=== PATIENT | female | born 1965 | race African-American/Black ===

== ENCOUNTER 2016-12-14 17:11 | Inpatient (IN) | payer MEDICAID, OTHER ==
[~2016-12-14] VITALS: Ht 160 cm; Wt 92.1 kg
[2016-12-14] MEDS ORDERED: SODIUM CHLORIDE 0.9% 500 ML IVB ONE (18:33)
[2016-12-14] MEDS ORDERED: MORPHINE SULF INJ 2 MG/ML SYRINGE 1ML IV ONE (18:45)
[2016-12-14] MEDS ORDERED: ONDANSETRON HCL 4 MG/2 ML VIAL IV ONE (18:45)
[2016-12-14 20:12] LABS: Basophils # (auto) 0 uL; Basophils % (auto) 0.3 % (0.0-2.0); Eosinophils # (auto) 0.1 uL; Eosinophils % (auto) 0.4 % (0.0-7.0); Hematocrit 39.8 % (36.0-46.0); Hemoglobin 13.6 g/dL (12.2-16.2); Lymphocytes # (auto) 1.6 uL; Lymphocytes % (auto) 9.7 % (10.0-50.0); Mean Corpuscular Hemoglobin 30.3 pg (28.0-32.0); Mean Corpuscular Hgb Conc. 34.2 g/dL (32.0-36.0); Mean Corpuscular Volume 88.5 fL (80.0-100.0); Mean Platelet Volume 6.3 fL (6.9-10.8); Monocytes # (auto) 0.6 uL; Monocytes % (auto) 3.9 % (0.0-12.0); Neutrophils # (auto) 13.8 uL; Neutrophils % (auto) 85.7 % (37.0-80.0); Nucleated Red Blood Cells % 0.1 %; Platelet Count (auto) 170 10^3/uL (140-450); Red Cell Distribution Width 13.8 % (11.8-14.3); White Blood Cell 16.1 10^3/uL (4.4-10.8)
[2016-12-14 20:43] LABS: Magnesium 2.4 mg/dL (1.6-2.6)
[2016-12-14 20:45] LABS: Albumin 3.8 g/dL (3.4-5.0); BUN/Creatinine Ratio 13.8; Bilirubin, Total 0.5 mg/dL (0.2-1.0); Calcium 9.2 mg/dL (8.5-10.1); Total Protein 8.9 g/dL (6.4-8.2)
[2016-12-14] MEDS ORDERED: MORPHINE SULF INJ 2 MG/ML SYRINGE 1ML IV PRN (23:00)
[2016-12-14] MEDS ORDERED: cefTRIAXone 1GM/50ML D5W 50 ML IV ONE (23:00)
[2016-12-14] MEDS ORDERED: SODIUM CHLORIDE 0.9% 500 ML IV ONE (23:00)
[2016-12-14] MEDS ORDERED: PANTOPRAZOLE 40 MG/10 ML VIAL IV ONE (23:00)
[2016-12-14] MEDS ORDERED: metroNIDAZOLE 500MG/100ML 100 ML IV ONE (23:00)
[2016-12-14] MEDS ORDERED: DEXTROSE (50%) 50ML SYRG IV PRN (23:00)
[2016-12-14] MEDS ORDERED: NITROGLYCERIN 0.4 MG SL TAB SL PRN (23:00)
[2016-12-14] MEDS: SODIUM CHLORIDE 0.9% 1,000 ML IV SCH (23:26)
[2016-12-15] VITALS (8 sets, daily range): BP systolic 119–144; BP diastolic 70–81
[2016-12-15] MEDS: ACCU-CHEK COMFORT CURVE STRIP VI SCH ×5 (00:11→23:56)
[2016-12-15] MEDS: ONDANSETRON HCL 4 MG/2 ML VIAL IV PRN ×4 (00:15→21:33)
[2016-12-15] MEDS: MORPHINE SULF INJ 2 MG/ML SYRINGE 1ML IV PRN ×3 (00:16→17:34)
[2016-12-15] MEDS: HYDROcodone-ACET 5/325MG TAB PO PRN ×3 (01:20→11:30)
[2016-12-15] MEDS: metroNIDAZOLE 500MG/100ML 100 ML IV SCH ×3 (05:21→22:17)
[2016-12-15] MEDS: InsuLIN REG 1unit/0.01ml Soln (100units/ml) SC SCH ×5 (05:40→23:56)
[2016-12-15 06:04] LABS: Basophils # (auto) 0.1 uL; Basophils % (auto) 0.5 % (0.0-2.0); Eosinophils # (auto) 0.2 uL; Eosinophils % (auto) 1.5 % (0.0-7.0); Hematocrit 35.2 % (36.0-46.0); Lymphocytes # (auto) 2.9 uL; Lymphocytes % (auto) 25.5 % (10.0-50.0); Mean Corpuscular Hemoglobin 30.3 pg (28.0-32.0); Mean Corpuscular Hgb Conc. 34.1 g/dL (32.0-36.0); Mean Corpuscular Volume 88.9 fL (80.0-100.0); Mean Platelet Volume 6.5 fL (6.9-10.8); Monocytes # (auto) 0.6 uL; Monocytes % (auto) 4.9 % (0.0-12.0); Neutrophils # (auto) 7.7 uL; Neutrophils % (auto) 67.6 % (37.0-80.0); Platelet Count (auto) 127 10^3/uL (140-450); White Blood Cell 11.4 10^3/uL (4.4-10.8)
[2016-12-15 06:25] LABS: BUN/Creatinine Ratio 12.7; Calcium 8.7 mg/dL (8.5-10.1); Potassium 3.8 mmol/L (3.5-5.1)
[2016-12-15 06:27] LABS: Bilirubin, Total 0.5 mg/dL (0.2-1.0)
[2016-12-15] MEDS: ENOXAPARIN SOD 40 MG/0.4 ML SYRINGE SC SCH (10:00)
[2016-12-15] MEDS ORDERED: HCTZ 25 MG TAB PO SCH (10:00)
[2016-12-15] MEDS: cloNIDine HCL 0.1 MG TAB PO SCH ×2 (11:27→22:18)
[2016-12-15] MEDS: PANTOPRAZOLE 40 MG/10 ML VIAL IV SCH (11:27)
[2016-12-15] MEDS: amLODIPine BESYLATE 5 MG TAB PO SCH (11:28)
[2016-12-15] MEDS: SODIUM CHLORIDE 0.9% 1,000 ML IV SCH ×2 (12:10→23:56)
[2016-12-15 13:28] LABS: Urine Bilirubin Negative (Negative); Urine Blood Negative /uL (Negative); Urine Color Yellow (Yellow); Urine Glucose Normal (Normal); Urine Ketone 2+ (Negative); Urine Mucus FEW (None Seen); Urine Nitrite Negative (Negative); Urine RBC 1 /hpf (0 - 4); Urine Squamous Epithelial Cell FEW /hpf (<5); Urine Urobilinogen Normal (Negative); Urine pH 6.5 (5.0-8.0)
[2016-12-15] MEDS: ACETAMINOPHEN 325 MG TAB PO PRN (20:45)
[2016-12-15] MEDS: cefTRIAXone 1GM/50ML D5W 50 ML IV SCH (21:26)
[2016-12-15] MEDS: TEMAZEPAM 15 MG CAP PO PRN (22:19)
[2016-12-16 05:09] VITALS: BP 112/64
[2016-12-16] MEDS: HYDROcodone-ACET 5/325MG TAB PO PRN (05:23)
[2016-12-16] MEDS: InsuLIN REG 1unit/0.01ml Soln (100units/ml) SC SCH ×3 (05:26→18:00)
[2016-12-16] MEDS: ACCU-CHEK COMFORT CURVE STRIP VI SCH ×3 (05:27→18:00)
[2016-12-16] MEDS ORDERED: INSLISPI SC (05:40)
[2016-12-16] MEDS ORDERED: CLO01T GT (05:40)
[2016-12-16] MEDS ORDERED: FUR20T GT (05:40)
[2016-12-16] MEDS ORDERED: LISI-275 PO (05:40)
[2016-12-16] MEDS ORDERED: HYDR25TA4 PO (05:40)
[2016-12-16] MEDS ORDERED: TRAM50TA2 PO (05:40)
[2016-12-16] MEDS: metroNIDAZOLE 500MG/100ML 100 ML IV SCH ×3 (05:40→22:25)
[2016-12-16 05:51] LABS: Basophils # (auto) 0 uL; Basophils % (auto) 0.3 % (0.0-2.0); Eosinophils # (auto) 0.3 uL; Eosinophils % (auto) 2.7 % (0.0-7.0); Hematocrit 34.9 % (36.0-46.0); Lymphocytes # (auto) 2.7 uL; Lymphocytes % (auto) 27.8 % (10.0-50.0); Mean Corpuscular Hemoglobin 30.1 pg (28.0-32.0); Mean Corpuscular Hgb Conc. 34.5 g/dL (32.0-36.0); Mean Corpuscular Volume 87.4 fL (80.0-100.0); Mean Platelet Volume 6.5 fL (6.9-10.8); Monocytes # (auto) 0.6 uL; Monocytes % (auto) 6.4 % (0.0-12.0); Neutrophils # (auto) 6.1 uL; Neutrophils % (auto) 62.8 % (37.0-80.0); Nucleated Red Blood Cells % 0.1 %; Platelet Count (auto) 107 10^3/uL (140-450); White Blood Cell 9.7 10^3/uL (4.4-10.8)
[2016-12-16 06:00] LABS: Partial Thromboplastin Time 28.3 sec (22.64-33.71); Prothrombin Time 10.9 sec (9.37-12.3)
[2016-12-16 06:24] LABS: BUN/Creatinine Ratio 11.7; Calcium 8.1 mg/dL (8.5-10.1); Potassium 3.5 mmol/L (3.5-5.1)
[2016-12-16 08:00] VITALS: BP 124/75
[2016-12-16 08:24] VITALS: BP 124/75
[2016-12-16] MEDS: cloNIDine HCL 0.1 MG TAB PO SCH ×2 (10:00→22:25)
[2016-12-16] MEDS: ENOXAPARIN SOD 40 MG/0.4 ML SYRINGE SC SCH (10:31)
[2016-12-16] MEDS: PANTOPRAZOLE 40 MG/10 ML VIAL IV SCH (10:31)
[2016-12-16] MEDS: amLODIPine BESYLATE 5 MG TAB PO SCH (10:32)
[2016-12-16] MEDS ORDERED: GOLYTELY 4L KIT PO ONE (11:00)
[2016-12-16] MEDS ORDERED: POTASSIUM CHL 20 Meq TABLET PO ONE (11:30)
[2016-12-16] MEDS: ACETAMINOPHEN 325 MG TAB PO PRN (12:02)
[2016-12-16 12:28] VITALS: BP 119/67
[2016-12-16] MEDS: SOD CHL 0.9%/ KCL 20MEQ 1,000 ML IV SCH (14:52)
[2016-12-16 16:29] VITALS: BP 129/72
[2016-12-16] MEDS: ONDANSETRON HCL 4 MG/2 ML VIAL IV PRN ×2 (16:42→20:11)
[2016-12-16] MEDS: MORPHINE SULF INJ 2 MG/ML SYRINGE 1ML IV PRN (20:11)
[2016-12-16] MEDS: cefTRIAXone 1GM/50ML D5W 50 ML IV SCH (21:10)
[2016-12-16 22:00] VITALS: BP 145/88
[2016-12-16] MEDS: TEMAZEPAM 15 MG CAP PO PRN (22:25)
[2016-12-17] MEDS: ACCU-CHEK COMFORT CURVE STRIP VI SCH ×4 (00:04→17:31)
[2016-12-17] MEDS: HYDROcodone-ACET 5/325MG TAB PO PRN (00:05)
[2016-12-17] MEDS: ONDANSETRON HCL 4 MG/2 ML VIAL IV PRN ×3 (03:51→21:36)
[2016-12-17] MEDS: MORPHINE SULF INJ 2 MG/ML SYRINGE 1ML IV PRN ×2 (03:51→08:38)
[2016-12-17 05:00] VITALS: BP 133/80
[2016-12-17] MEDS: metroNIDAZOLE 500MG/100ML 100 ML IV SCH ×2 (05:52→13:14)
[2016-12-17] MEDS: InsuLIN REG 1unit/0.01ml Soln (100units/ml) SC SCH ×4 (06:00→17:31)
[2016-12-17 07:51] VITALS: BP 139/70
[2016-12-17 08:00] VITALS: BP 139/70
[2016-12-17] MEDS: ENOXAPARIN SOD 40 MG/0.4 ML SYRINGE SC SCH (10:00)
[2016-12-17] MEDS: cloNIDine HCL 0.1 MG TAB PO SCH ×2 (10:09→21:35)
[2016-12-17] MEDS: PANTOPRAZOLE 40 MG/10 ML VIAL IV SCH (10:09)
[2016-12-17] MEDS: amLODIPine BESYLATE 5 MG TAB PO SCH (10:09)
[2016-12-17] MEDS: SOD CHL 0.9%/ KCL 20MEQ 1,000 ML IV SCH (10:09)
[2016-12-17 16:30] VITALS: BP 112/67
[2016-12-17 21:31] VITALS: BP 129/69
[2016-12-17] MEDS: metroNIDAZOLE 500 MG TAB PO SCH (21:35)
[2016-12-17] MEDS: ACETAMINOPHEN 325 MG TAB PO PRN (21:36)
[2016-12-18] MEDS: ACCU-CHEK COMFORT CURVE STRIP VI SCH ×3 (00:26→11:34)
[2016-12-18] MEDS: SOD CHL 0.9%/ KCL 20MEQ 1,000 ML IV SCH (00:27)
[2016-12-18 05:00] VITALS: BP 96/44
[2016-12-18] MEDS: metroNIDAZOLE 500 MG TAB PO SCH ×2 (06:49→14:59)
[2016-12-18] MEDS: InsuLIN REG 1unit/0.01ml Soln (100units/ml) SC SCH ×3 (06:55→11:34)
[2016-12-18] MEDS: ACETAMINOPHEN 325 MG TAB PO PRN (07:17)
[2016-12-18 09:00] VITALS: BP 145/78
[2016-12-18] MEDS: MORPHINE SULF INJ 2 MG/ML SYRINGE 1ML IV PRN ×2 (09:57→15:00)
[2016-12-18] MEDS: ONDANSETRON HCL 4 MG/2 ML VIAL IV PRN ×2 (09:58→15:00)
[2016-12-18] MEDS: amLODIPine BESYLATE 5 MG TAB PO SCH (09:58)
[2016-12-18] MEDS ORDERED: PANTOPRAZOLE 40 MG TAB PO SCH (10:00)
[2016-12-18] MEDS: cloNIDine HCL 0.1 MG TAB PO SCH ×2 (10:00→11:34)
[2016-12-18] MEDS: ENOXAPARIN SOD 40 MG/0.4 ML SYRINGE SC SCH (11:34)
[2016-12-18 13:00] VITALS: BP 128/69
[2016-12-18 17:34] VITALS: BP 133/92
== END 2016-12-18 17:05 | disposition home or self-care (01) | DRG 720 ==
LOC: ER 17:17 → TELE 17:18 → TELE-WESTW 23:47 → WEST WING 12-15 16:01
PROVIDERS: ADMIT Nurse Practitioner; ATTEND Internal Medicine
DX: A41.9 Sepsis, unspecified organism (principal); A04.7 Enterocolitis due to Clostridium difficile; E66.01 Morbid (severe) obesity due to excess calories; I10 Essential (primary) hypertension; E11.9 Type 2 diabetes mellitus without complications; E78.5 Hyperlipidemia, unspecified; Z87.11 Personal history of peptic ulcer disease; Z86.73 Personal history of transient ischemic attack (TIA), and cerebral infarction without residual deficits; Z68.29 Body mass index [BMI] 29.0-29.9, adult
CPT/HCPCS: 36415; 74020; 74176; 80048; 80053; 81001; 82150; 82962; 83690; 83735; 85025; 85048; 85610; 85730; 87045; 87493; 87899; 94761; 96361; 96365; 96368; 96375; C9113; J0696; J1815; J2405; J3490